=== PATIENT | female | born 1985 | race African-American/Black ===

== ENCOUNTER → 2017-09-12 | Outpatient (CLI) | payer BC ==
[~2017-09-12] MED LIST: APAP500 PO; IBUPROFEN 600600 M1 PO; NORCO 5-325 TA1 EACH PO; PEPCID20 MG PO; ZOFRAN ODT4 MG PO; ZPAK PO
== END ==
LOC: RAD 12:02
DX: M47.892 Other spondylosis, cervical region (principal)

== ENCOUNTER 2018-01-22 13:13 | Emergency (ER) | payer BC ==
[~2018-01-22] VITALS: Ht 162.6 cm; Wt 121.6 kg
[2018-01-22 13:20] VITALS: BP 129/79
[2018-01-22] MEDS ORDERED: NORCO 5-325 TA1 EACH PO (13:42)
== END 2018-01-22 14:03 | disposition home or self-care (01) ==
LOC: ER 13:13
DX: M26.622 Arthralgia of left temporomandibular joint (principal); R51 Headache

== ENCOUNTER 2021-09-03 07:55 | Emergency (ER) | payer BC ==
[~2021-09-03] VITALS: Ht 157.5 cm; Wt 89.4 kg
[2021-09-03 07:58] VITALS: BP 127/56
[2021-09-03 08:45] LABS: URINE BILIRUBIN NEGATIVE (Negative); URINE BLOOD TRACE (Negative); URINE CLARITY CLEAR; URINE COLOR YELLOW; URINE GLUCOSE-RANDOM* NEGATIVE (Negative); URINE KETONES NEGATIVE (Negative); URINE LEUKOCYTES-REFLEX NEGATIVE (Negative); URINE NITRITE-REFLEX NEGATIVE (Negative); URINE PROTEIN (DIPSTICK) NEGATIVE (Negative); URINE SPECIFIC GRAVITY 1.025 (1.005-1.035); URINE UROBILINOGEN 0.2 E.U./dl (0.2-1.0)
== END 2021-09-03 09:27 | disposition home or self-care (01) ==
LOC: ER 07:55
PROVIDERS: Emergency Medicine
DX: U07.1 COVID-19 (principal); B34.9 Viral infection, unspecified

== ENCOUNTER → 2021-10-20 | Outpatient (CLI) | payer BC | LOC: RAD 16:42 | PROVIDERS: ATTEND Family Medicine | DX: M25.512 Pain in left shoulder (principal); G89.29 Other chronic pain ==